=== PATIENT | female | born 1995 | race Two or more races ===

== ENCOUNTER 2019-08-28 17:26 | Emergency (ER) | payer OTHER ==
[~2019-08-28] VITALS: Ht 165.1 cm; Wt 127.5 kg
[2019-08-28 17:34] VITALS: BP 143/80
--- NOTE | 2019-08-28 17:55 | NUR ---
PT TO ROOM 27 PER PEDIS. PT HERE TODAY DUE TO PAIN WITH SWALLOWING AND WHITE SPOT ON TONSILS. WHITE SPOT NOTED ON LEFT TONSIL. PT HEALTHY OTHERWISE.
[2019-08-28] MEDS ORDERED: DEXAMETHASONE 4 MG TABLET ONE (18:19)
[2019-08-28] MEDS ORDERED: DEXAMETHASONE 4 MG TABLET PO ONE (18:30)
--- NOTE | 2019-08-28 18:58 | NUR ---
DISCHARGE INSTRUCTIONS GIVEN TO PATIENT WITH INSTRUCTIONS ON USE OF APAP/MOTRIN. PT AMBULATED OUT OF ED PER PEDIS.
== END 2019-08-28 19:01 | disposition home or self-care (01) ==
LOC: ED 18:36
DX: J02.9 Acute pharyngitis, unspecified (principal)
CPT/HCPCS: 87081; 87880; 99283